=== PATIENT | female | born 1930 | race Caucasian/White ===

== ENCOUNTER → 2016-09-06 | Outpatient (CLI) | payer MEDICARE ==
[~2016-09-06] MED LIST: COUMADIN4 M1 PO; DILTIAZEM HCL180 MG PO; LIDEX0.05% T; LISINOPRIL2.5 MG PO; LOPRESSOR25 MG PO; Lovenox60 MG/0.6 PO; TRAMADOL HCL50 MG PO; TRAMADOL50 MG PO
--- NOTE | ~2016-09-06 | ST ---
[place], [place] EXERCISE STRESS TEST REPORT NAME: CLARE SOOD [facility] #: [id number] UNIT #: [id number] ROOM: DOCTOR: ASTRID PEREZ MD BIRTHDATE: [birth year] DOS: 09/06/2016 PHARMACOLOGIC STRESS TEST Referred by nurse practitioner, Niru Zaragoza. Study was done and is being dictated 09/06/2016. Indications and preoperative assessment prior to back surgery, dyspnea. PROCEDURE: The patient was given a rapid infusion of regadenoson 0.4 mg intravenously followed by a saline flush. She developed dyspnea and nausea, which resolved spontaneously. 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 She had frequent PVCs at rest. With the infusion, she had a normal tachycardic response, no EKG changes occurred. The resting heart rate of 79 boaz to 103. The resting blood pressure of 150/64 fell to 128/60. Radionuclide was administered 40 seconds after regadenoson. IMPRESSION: 1. Well tolerated infusion of regadenoson. 2. Radionuclide administered. Please see the separate myocardial perfusion image report for further details of the patient's stress test results. ASTRID PEREZ MD CM:STRESS:EXERCISE STRESS TEST REPORT [id number] ASTRID PEREZ MD
== END ==
LOC: CARD 02:07
DX: I10 Essential (primary) hypertension (principal); I48.0 Paroxysmal atrial fibrillation; R06.02 Shortness of breath

== ENCOUNTER 2017-12-29 16:44 | Inpatient (IN) | payer MEDICARE ==
[~2017-12-29] VITALS: Ht 167.5 cm; Wt 58.7 kg
[2017-12-29] MEDS ORDERED: COUMADIN5 M2 PO (17:04)
[2017-12-29 17:27] VITALS: BP 158/72
[2017-12-29 18:01] LABS: BASO % 0.8 % (0.0-1.0); EOS # 0.1 10*3/uL (0.0-0.4); EOS % 2.3 % (1.0-4.0); HEMATOCRIT 37.9 % (37.0-47.0); HEMOGLOBIN 12.2 g/dl (12.0-16.0); LYMPH % 37.5 % (27.0-41.0); MEAN CELL VOLUME 93.1 fl (81.0-99.0); MEAN CORPUSCULAR HGB CONC 32.2 g/dl (33.0-37.0); MEAN PLATELET VOLUME 9.9 fl (9.6-12.3); MONO # 0.5 10*3/uL (0.1-1.0); MONO % 8.4 % (3.0-9.0); NEUT # 2.7 10*3/uL (2.3-7.9); NEUT % 50.4 % (47.0-73.0); PLATELET COUNT AUTOMATED 223 10*3/uL (130-400); RED BLOOD COUNT 4.07 10*6/uL (4.10-5.10); RED CELL DISTRI WIDTH 13.2 % (0-14.5); WHITE BLOOD COUNT 5.3 10*3/uL (4.8-10.8)
[2017-12-29 18:32] LABS: ALBUMIN 3.3 gm/dl (3.1-4.5); CREATININE 1.51 mg/dL (0.55-1.02); TOTAL PROTEIN 6.7 gm/dL (6.4-8.2)
[2017-12-29 20:00] VITALS: BP 103/60
[2017-12-29 20:14] VITALS: BP 157/66
[2017-12-29 20:48] LABS: INTERNATIONAL NORM RATIO 3.3 (2.0-3.5)
[2017-12-30] VITALS: BP 119/59
[2017-12-30 06:59] LABS: EOS # 0.1 10*3/uL (0.0-0.4); EOS % 2.9 % (1.0-4.0); HEMATOCRIT 35.8 % (37.0-47.0); HEMOGLOBIN 11.4 g/dl (12.0-16.0); LYMPH # 1.3 10*3/uL (1.3-4.4); MEAN CELL VOLUME 93.2 fl (81.0-99.0); MEAN CORPUSCULAR HGB 29.7 pg (27.0-31.0); MEAN CORPUSCULAR HGB CONC 31.8 g/dl (33.0-37.0); MEAN PLATELET VOLUME 10.3 fl (9.6-12.3); MONO # 0.4 10*3/uL (0.1-1.0); MONO % 10.2 % (3.0-9.0); NEUT % 52.4 % (47.0-73.0); PLATELET COUNT AUTOMATED 213 10*3/uL (130-400); RED BLOOD COUNT 3.84 10*6/uL (4.10-5.10); RED CELL DISTRI WIDTH 13.4 % (0-14.5); WHITE BLOOD COUNT 3.8 10*3/uL (4.8-10.8)
[2017-12-30 07:27] LABS: INTERNATIONAL NORM RATIO 2.8 (2.0-3.5)
[2017-12-30 07:33] LABS: POTASSIUM 4.7 mmol/L (3.5-5.1)
[2017-12-30 07:43] LABS: ALBUMIN 2.9 gm/dl (3.1-4.5); CREATININE 1.38 mg/dL (0.55-1.02); FREE T4 1.06 ng/dl (0.76-1.46); PHOSPHOROUS 3.5 mg/dL (2.5-4.9); THYROID STIM HORMONE (HS) 1.93 uIU/ml (0.358-4.75); TOTAL PROTEIN 6.4 gm/dL (6.4-8.2)
[2017-12-30 08:00] VITALS: BP 128/89
[2017-12-30 08:22] LABS: VITAMIN D, 25-HYDROXY 30.7 ng/mL (30-100)
[2017-12-30 12:00] VITALS: BP 142/70
[2017-12-30 16:00] VITALS: BP 120/50
[2017-12-30 20:00] VITALS: BP 142/69
[2017-12-31] VITALS: BP 133/47
[2017-12-31 06:39] LABS: INTERNATIONAL NORM RATIO 2.4 (2.0-3.5)
[2017-12-31 08:00] VITALS: BP 143/49
[2017-12-31] MEDS ORDERED: LISINOPRIL10 M1 PO (08:40)
[2017-12-31] MEDS ORDERED: COUMADIN4 M2 PO (08:49)
[2017-12-31] MEDS ORDERED: LEVOFLOXACIN500 MG PO (08:52)
== END 2017-12-31 11:15 | disposition home or self-care (01) | DRG 178 ==
LOC: 4E 16:44
PROVIDERS: Registered Nurse
DX: J15.6 Pneumonia due to other Gram-negative bacteria (principal); E44.0 Moderate protein-calorie malnutrition; I48.91 Unspecified atrial fibrillation; E83.41 Hypermagnesemia; D64.9 Anemia, unspecified; I12.9 Hypertensive chronic kidney disease with stage 1 through stage 4 chronic kidney disease, or unspecified chronic kidney disease; J20.9 Acute bronchitis, unspecified; M19.90 Unspecified osteoarthritis, unspecified site; N18.3 Chronic kidney disease, stage 3 (moderate); J44.9 Chronic obstructive pulmonary disease, unspecified; Z66 Do not resuscitate; M48.00 Spinal stenosis, site unspecified; T45.515A Adverse effect of anticoagulants, initial encounter; Y92.89 Other specified places as the place of occurrence of the external cause; Z79.01 Long term (current) use of anticoagulants; Z83.3 Family history of diabetes mellitus; Z86.711 Personal history of pulmonary embolism; Z68.22 Body mass index [BMI] 22.0-22.9, adult

== ENCOUNTER 2018-01-07 10:38 | Inpatient (IN) | payer MEDICARE ==
[~2018-01-07] VITALS: Ht 160 cm; Wt 59.2 kg
[~2018-01-07 10:38] MED LIST changes: +COUMADIN4 M2 PO; +COUMADIN5 M2 PO; +LEVOFLOXACIN500 MG PO; +LISINOPRIL10 M1 PO
[2018-01-07 11:40] LABS: BASO % 0.8 % (0.0-1.0); EOS # 0.2 10*3/uL (0.0-0.4); EOS % 3.2 % (1.0-4.0); HEMATOCRIT 37.8 % (37.0-47.0); LYMPH # 1.6 10*3/uL (1.3-4.4); LYMPH % 31.7 % (27.0-41.0); MEAN CELL VOLUME 93.8 fl (81.0-99.0); MEAN CORPUSCULAR HGB 29.8 pg (27.0-31.0); MEAN CORPUSCULAR HGB CONC 31.7 g/dl (33.0-37.0); MEAN PLATELET VOLUME 9.9 fl (9.6-12.3); MONO # 0.4 10*3/uL (0.1-1.0); MONO % 8.3 % (3.0-9.0); NEUT # 2.7 10*3/uL (2.3-7.9); NEUT % 54.8 % (47.0-73.0); PLATELET COUNT AUTOMATED 223 10*3/uL (130-400); RED BLOOD COUNT 4.03 10*6/uL (4.10-5.10); RED CELL DISTRI WIDTH 13.2 % (0-14.5)
[2018-01-07 11:50] LABS: INTERNATIONAL NORM RATIO 2.5 (2.0-3.5)
[2018-01-07 11:55] LABS: ALBUMIN 3.2 gm/dl (3.1-4.5); CREATININE 1.69 mg/dL (0.55-1.02); POTASSIUM 4.8 mmol/L (3.5-5.1); TOTAL PROTEIN 6.6 gm/dL (6.4-8.2)
[2018-01-07] MEDS ORDERED: LISINOPRIL10 M1 PO (13:41)
[2018-01-07 16:00] VITALS: BP 128/48
[2018-01-07 20:00] VITALS: BP 137/52
[2018-01-08] VITALS: BP 104/50
[2018-01-08 07:09] LABS: BASO # 0.1 10*3/uL (0.0-0.1); BASO % 1.1 % (0.0-1.0); EOS # 0.2 10*3/uL (0.0-0.4); EOS % 4.1 % (1.0-4.0); HEMATOCRIT 32.9 % (37.0-47.0); HEMOGLOBIN 10.4 g/dl (12.0-16.0); LYMPH % 42.6 % (27.0-41.0); MEAN CELL VOLUME 94.8 fl (81.0-99.0); MEAN CORPUSCULAR HGB CONC 31.6 g/dl (33.0-37.0); MEAN PLATELET VOLUME 10.1 fl (9.6-12.3); MONO # 0.4 10*3/uL (0.1-1.0); MONO % 8.7 % (3.0-9.0); NEUT % 42.6 % (47.0-73.0); PLATELET COUNT AUTOMATED 203 10*3/uL (130-400); RED BLOOD COUNT 3.47 10*6/uL (4.10-5.10); RED CELL DISTRI WIDTH 13.4 % (0-14.5); WHITE BLOOD COUNT 4.6 10*3/uL (4.8-10.8)
[2018-01-08 07:14] LABS: ALBUMIN 2.5 gm/dl (3.1-4.5); CREATININE 1.23 mg/dL (0.55-1.02); PHOSPHOROUS 3.4 mg/dL (2.5-4.9); POTASSIUM 4.9 mmol/L (3.5-5.1); TOTAL PROTEIN 5.3 gm/dL (6.4-8.2)
[2018-01-08 08:00] VITALS: BP 118/48
[2018-01-08 09:31] LABS: INTERNATIONAL NORM RATIO 2.5 (2.0-3.5)
[2018-01-08 12:00] VITALS: BP 125/53
[2018-01-08 16:00] VITALS: BP 152/68
[2018-01-08 20:00] VITALS: BP 144/58
[2018-01-09] VITALS: BP 125/62
[2018-01-09 06:24] LABS: BASO % 0.5 % (0.0-1.0); EOS # 0.2 10*3/uL (0.0-0.4); EOS % 3.8 % (1.0-4.0); HEMOGLOBIN 10.8 g/dl (12.0-16.0); LYMPH # 1.8 10*3/uL (1.3-4.4); LYMPH % 42.9 % (27.0-41.0); MEAN CELL VOLUME 93.7 fl (81.0-99.0); MEAN CORPUSCULAR HGB 29.8 pg (27.0-31.0); MEAN CORPUSCULAR HGB CONC 31.8 g/dl (33.0-37.0); MEAN PLATELET VOLUME 9.7 fl (9.6-12.3); MONO # 0.4 10*3/uL (0.1-1.0); MONO % 8.5 % (3.0-9.0); NEUT # 1.8 10*3/uL (2.3-7.9); NEUT % 43.4 % (47.0-73.0); PLATELET COUNT AUTOMATED 198 10*3/uL (130-400); RED BLOOD COUNT 3.63 10*6/uL (4.10-5.10); RED CELL DISTRI WIDTH 13.2 % (0-14.5); WHITE BLOOD COUNT 4.2 10*3/uL (4.8-10.8)
[2018-01-09 06:53] LABS: CREATININE 1.06 mg/dL (0.55-1.02); POTASSIUM 4.6 mmol/L (3.5-5.1)
[2018-01-09 07:00] LABS: INTERNATIONAL NORM RATIO 2.3 (2.0-3.5)
[2018-01-09 08:00] VITALS: BP 135/56
[2018-01-09 08:05] LABS: FERRITIN 48.9 ng/mL (10.0-291.0)
== END 2018-01-09 14:00 | disposition home health service (06) | DRG 683 ==
LOC: 5E 10:38
PROVIDERS: Internal Medicine; Registered Nurse
DX: N17.1 Acute kidney failure with acute cortical necrosis (principal); E44.0 Moderate protein-calorie malnutrition; I48.1 Persistent atrial fibrillation; J44.9 Chronic obstructive pulmonary disease, unspecified; M54.5 Low back pain; M19.90 Unspecified osteoarthritis, unspecified site; I12.9 Hypertensive chronic kidney disease with stage 1 through stage 4 chronic kidney disease, or unspecified chronic kidney disease; M48.00 Spinal stenosis, site unspecified; N18.3 Chronic kidney disease, stage 3 (moderate); R29.6 Repeated falls; Z79.01 Long term (current) use of anticoagulants; Z87.01 Personal history of pneumonia (recurrent); Z86.711 Personal history of pulmonary embolism; Z83.3 Family history of diabetes mellitus; Z79.899 Other long term (current) drug therapy

== ENCOUNTER → 2018-02-09 | Outpatient (CLI) | payer MEDICARE | END | disposition home or self-care (01) | LOC: ORTHO 03:30 | DX: M81.0 Age-related osteoporosis without current pathological fracture (principal) ==

== ENCOUNTER 2018-09-23 18:29 | Emergency (ER) | payer MEDICARE ==
[~2018-09-23] VITALS: Ht 162.5 cm; Wt 59.0 kg
== END 2018-09-23 19:12 | disposition left against medical advice (07) ==
LOC: ED 18:29
DX: S01.01XA Laceration without foreign body of scalp, initial encounter (principal); Z79.899 Other long term (current) drug therapy; W19.XXXA Unspecified fall, initial encounter; Y93.89 Activity, other specified; Y92.89 Other specified places as the place of occurrence of the external cause; Y99.8 Other external cause status